=== PATIENT | male | born 1970 | race African-American/Black ===

== ENCOUNTER 2021-11-09 14:29 | Emergency (ER) | payer MEDICAID ==
[~2021-11-09] VITALS: Ht 190.5 cm; Wt 89.0 kg
[2021-11-09 14:46] VITALS: BP 140/104
== END 2021-11-09 18:58 | disposition left against medical advice (07) ==
LOC: ER 14:29
DX: R10.9 Unspecified abdominal pain (principal); Z53.21 Procedure and treatment not carried out due to patient leaving prior to being seen by health care provider